=== PATIENT | male | born 1950 | race Caucasian/White ===

== ENCOUNTER 2016-10-10 21:45 | Emergency (ER) | payer MEDICARE, MEDICAID ==
[~2016-10-10] VITALS: Ht 160 cm; Wt 68.0 kg
[~2016-10-10 21:45] MED LIST: HYDR25TA4 PO; METF1000 PO; SULF1TAB48 PO
[2016-10-10 22:32] VITALS: BP 131/61; PULSE 88; RESP 15; TEMP 97.4; O2SAT 97
[2016-10-11] MEDS ORDERED: LIDOCAINE/EPI 1% 1:100000 20 ML VIAL IJ ONE (02:00)
[2016-10-11] MEDS ORDERED: AMOXICILLIN/CLAVULANATE POTASSIUM 500 MG TABLET PO ONE (02:00)
[2016-10-11] MEDS ORDERED: HYDROcodone/ACETAMIN 7.5-325 MG TAB PO ONE (02:00)
[2016-10-11] MEDS ORDERED: BACITRACIN 1 GM OINT TP ONE ×2 (02:00→02:45)
[2016-10-11] MEDS ORDERED: DIPH-TET-PERTUS Vaccine 0.5 ML VIAL (ADACEL) IM ONE (02:00)
[2016-10-11 03:40] VITALS: BP 138/72; PULSE 87; RESP 18; TEMP 97.4; O2SAT 97
== END 2016-10-11 03:40 | disposition home or self-care (01) ==
LOC: SED 21:45
DX: S51.812A Laceration without foreign body of left forearm, initial encounter (principal); E11.9 Type 2 diabetes mellitus without complications; K21.9 Gastro-esophageal reflux disease without esophagitis; I10 Essential (primary) hypertension; W54.0XXA Bitten by dog, initial encounter; Y93.89 Activity, other specified; Y92.89 Other specified places as the place of occurrence of the external cause; Y99.8 Other external cause status
CPT/HCPCS: 90715; 99284

== ENCOUNTER 2023-07-22 13:52 | Emergency (ER) | payer MEDICAID, MEDICARE, OTHER ==
[~2023-07-22] VITALS: Ht 160 cm; Wt 68.0 kg
[2023-07-22 13:57] VITALS: BP_SYST 144; PULSE 90; RESP 18; TEMP 97.2; O2SAT 98
[2023-07-22 14:52] LABS: ANION GAP 10 (5-15); CARBON DIOXIDE 26 mmol/L (23-29); CHLORIDE 94 mmol/L (98-107); CREATININE 0.66 mg/dL (0.55-1.30); GLUCOSE 126 mg/dL (74-106); SODIUM SERUM 130 mmol/L (136-145); UREA NITROGEN, BLOOD 12 mg/dL (8-21)
[2023-07-22 15:28] VITALS: BP_SYST 144; PULSE 90; RESP 18; TEMP 97.2; O2SAT 98
== END 2023-07-22 15:27 | disposition home or self-care (01) ==
LOC: SED 13:52
DX: Z00.8 Encounter for other general examination (principal); E87.1 Hypo-osmolality and hyponatremia; E11.9 Type 2 diabetes mellitus without complications; K21.9 Gastro-esophageal reflux disease without esophagitis; I10 Essential (primary) hypertension; Z79.899 Other long term (current) drug therapy
CPT/HCPCS: 36415; 80048; 99283

== ENCOUNTER 2023-11-23 16:30 | Emergency (ER) | payer OTHER ==
[~2023-11-23] VITALS: Ht 162.6 cm; Wt 68.0 kg
[2023-11-23 17:11] VITALS: BP_SYST 139; PULSE 72; RESP 18; TEMP 97.6; O2SAT 98
[2023-11-23 18:11] LABS: ALANINE AMINOTRANSFERASE 33 U/L (12-78); ALBUMIN 3.8 g/dL (3.4-4.8); ANION GAP 8 (5-15); ASPARTATE AMINOTRANSFERASE 18 U/L (10-37); CALCIUM 8.9 mg/dL (8.4-11.0); CARBON DIOXIDE 27 mmol/L (23-29); CHLORIDE 92 mmol/L (98-107); CREATININE 0.62 mg/dL (0.55-1.30); GLUCOSE 101 mg/dL (74-106); POTASSIUM 4.1 mmol/L (3.5-5.1); SODIUM SERUM 127 mmol/L (136-145); TOTAL BILIRUBIN 0.3 mg/dL (0.0-1.0); TOTAL PROTEIN, SERUM 7.8 g/dL (6.4-8.3); UREA NITROGEN, BLOOD 7 mg/dL (8-21)
[2023-11-23 18:14] LABS: BASOPHILS # (AUTO) 0.1 K/uL (0.0-0.2); BASOPHILS % (AUTO) 0.7 % (0.0-2.0); EOSINOPHILS # (AUTO) 0.2 K/uL (0.0-0.4); EOSINOPHILS % (AUTO) 2.6 % (0.0-4.0); HEMATOCRIT 33.8 % (36-54); HEMOGLOBIN 12.3 g/dL (14.0-18.0); LYMPHOCYTES # (AUTO) 1.6 K/uL (1.0-5.5); MEAN CORPUSCULAR HEMOGLOBIN 32 pg (27-31); MEAN CORPUSCULAR HGB CONC 36 % (32-36); MEAN CORPUSCULAR VOLUME 89 fL (79.0-98.0); MONOCYTES # (AUTO) 0.8 K/uL (0.0-1.0); MONOCYTES % (AUTO) 10.6 % (1.7-9.3); NEUTROPHILS # (AUTO) 5.2 K/uL (1.8-7.7); NEUTROPHILS % (AUTO) 66.1 % (40.0-70.0); PLATELET COUNT (AUTO) 354 K/uL (130-430); RED BLOOD CELL COUNT(AUTO) 3.79 MIL/uL (4.2-6.2); RED CELL DISTRIBUTION WIDTH 13.2 % (9.0-15.0); WHITE BLOOD COUNT (AUTO) 7.9 K/uL (4.8-10.8)
[2023-11-23 18:32] LABS: BILIRUBIN,URINE NEGATIVE (NEGATIVE); BLOOD, URINE NEGATIVE (NEGATIVE); CLARITY/URINE CLEAR (CLEAR); COLOR,URINE YELLOW (YELLOW); GLUCOSE,URINE NEGATIVE (NEGATIVE); KETONES,URINE NEGATIVE (NEGATIVE); LEUKOCYTE ESTERASE ,URINE NEGATIVE (NEGATIVE); NITRITE, URINE NEGATIVE (NEGATIVE); PH,URINE 7.5 (5.0-8.0); PROTEIN URINE NEGATIVE (NEGATIVE); UROBILINOGEN,URINE 0.2 (0.2-1.0)
[2023-11-23] MEDS: SODIUM CHLORIDE 1,000 MG TABLET PO ONE (19:04)
[2023-11-23 19:08] VITALS: BP_SYST 139; PULSE 72; RESP 18; TEMP 97.6; O2SAT 98
== END 2023-11-23 19:11 | disposition home or self-care (01) ==
LOC: SED 16:30
DX: E87.1 Hypo-osmolality and hyponatremia (principal); E11.9 Type 2 diabetes mellitus without complications; I10 Essential (primary) hypertension; K21.9 Gastro-esophageal reflux disease without esophagitis; Z79.899 Other long term (current) drug therapy; Z79.2 Long term (current) use of antibiotics
CPT/HCPCS: 36415; 80053; 81001; 81003; 85025; 99283